=== PATIENT | female | born 1970 | race Caucasian/White ===

== ENCOUNTER 2021-09-08 09:36 | Emergency (ER) | payer OTHER ==
[~2021-09-08] VITALS: Ht 165.1 cm; Wt 59.1 kg
[2021-09-08 10:03] VITALS: BP 121/72
[2021-09-08] MEDS ORDERED: ACYC200C PO (10:43)
[2021-09-08] MEDS ORDERED: acyclovir 200 MG capsule PO STA (10:43)
[2021-09-08] MEDS ORDERED: CEPH-585 PO (10:43)
[2021-09-08] MEDS ORDERED: GABA-530 PO (10:43)
[2021-09-08] MEDS ORDERED: cephalexin 500mg capsule PO ONE (10:45)
== END 2021-09-08 11:15 | disposition home or self-care (01) ==
LOC: ER 09:37 → EEVIPCON 09:37 → ER 11:15
DX: B02.9 Zoster without complications (principal); L03.211 Cellulitis of face
CPT/HCPCS: 99283